=== PATIENT | female | born 1995 | race African-American/Black ===

== ENCOUNTER 2023-03-28 00:21 | Emergency (ER) | payer OTHER ==
[~2023-03-28] VITALS: Ht 162.6 cm; Wt 56.3 kg
[2023-03-28 00:29] VITALS: BP 131/98; O2SAT 100
[2023-03-28 01:35] LABS: CLARITY URINE CLEAR (CLEAR); COLOR URINE YELLOW (YELLOW); GLUCOSE URINE NEGATIVE (NEGATIVE); KETONES URINE NEGATIVE (NEGATIVE); LEUKOCYTE ESTERASE URINE NEGATIVE (NEGATIVE); NITRITE URINE NEGATIVE (NEGATIVE); OCCULT BLOOD URINE NEGATIVE (NEGATIVE); PROTEIN URINE NEGATIVE (NEGATIVE)
[2023-03-28 01:45] VITALS: PULSE 84; RESP 20; TEMP 99
[2023-03-28] MEDS ORDERED: CYCLOBENZAPRINE 10MG TABLET PO ONE (01:45)
[2023-03-28] MEDS ORDERED: CYCLOBENZAPRINE 10MG TABLET PO SCH (06:00)
== END 2023-03-28 01:46 | disposition home or self-care (01) ==
LOC: ER 00:49
DX: G62.9 Polyneuropathy, unspecified (principal); Z88.2 Allergy status to sulfonamides
CPT/HCPCS: 81003; 81025; 99283